=== PATIENT | female | born 1980 | race Two or more races ===

== ENCOUNTER 2018-01-01 17:05 | Emergency (ER) | payer OTHER ==
[~2018-01-01] VITALS: Ht 154.9 cm; Wt 65.8 kg
[2018-01-01 17:11] VITALS: BP 120/73
[2018-01-01] MEDS ORDERED: AMOX/CLAVULANATE 875 MG TABLET ONE (18:20)
[2018-01-01] MEDS ORDERED: TDAP [DIPH/PERTUSSIS/TET] 0.5 ML VIAL IM ONE ×2 (18:20→18:30)
[2018-01-01] MEDS ORDERED: AMOX/CLAVULANATE 875 MG TABLET PO ONE (18:30)
--- NOTE | 2018-01-01 19:08 | NUR ---
REPORT GIVEN TO ZACHARY FOR ANNA MARIE
--- NOTE | 2018-01-01 19:12 | NUR ---
CALLED DR ANTHONY BURRELL, LEFT A VOICEMAIL.
--- NOTE | 2018-01-01 19:13 | NUR ---
Jarrod tolentino in [facility] [place] - 01/01/18 at 1914 by ANDREA REPORT RECEIVED FROM ESTER GUAMAN FOR ANNA MARIE.
--- NOTE | 2018-01-01 19:15 | NUR ---
REPORT RECEIVED FROM ESTER GUAMAN FOR ANNA MARIE.
--- NOTE | 2018-01-01 19:41 | NUR ---
CALLED [facility] SPOKE WITH [facility], HE STATED THEY ARE ONLY OPEN FOR PEDS AND OB FOR HIGHER LEVEL OF CARE AT THIS TIME.
--- NOTE | 2018-01-01 22:17 | NUR ---
patient left prior to splin application.
== END 2018-01-01 22:19 | disposition home or self-care (01) ==
LOC: ER 17:10
DX: S61.431A Puncture wound without foreign body of right hand, initial encounter (principal); W45.8XXA Other foreign body or object entering through skin, initial encounter; Y93.89 Activity, other specified; Y92.89 Other specified places as the place of occurrence of the external cause; Y99.8 Other external cause status
CPT/HCPCS: 12001; 73130; 90471; 90715; 99284; A4606; A6403; Z7610

== ENCOUNTER 2019-01-24 01:25 | Emergency (ER) | payer OTHER ==
[~2019-01-24] VITALS: Ht 154.9 cm; Wt 67.6 kg
--- NOTE | 2019-01-24 02:00 | NUR ---
PT BIBSELF C/O L ANKLE PAIN X5 DAYS. PT STATES SHE WAS CLEANING AND HAD MULTIPLE BOXES FALL ON HER ANKLE. PT STATES SHE WAS ABLE TO AMBULATE WITH LIMP IN GAIT, BUT PAIN HAS GOTTEN PROGRESSIVELY WORSE. PT AAOX4. RESPIRATIONS EVEN AND UNLABORED. SKIN INTACT. NO ACUTE DISTRESS NOTED
[2019-01-24] MEDS ORDERED: IBUPROFEN 600 MG TABLET PO ONE ×2 (02:20→02:30)
--- NOTE | 2019-01-24 02:29 | NUR ---
RADIOLOGY AT BEDSIDE FOR XRAY
[2019-01-24 03:04] VITALS: BP 128/76
--- NOTE | 2019-01-24 03:04 | NUR ---
Patient discharged to home in stable condition. Written and verbal after care instructions given. Patient verbalizes understanding of instruction. Pt ambulatory with a steady gait
== END 2019-01-24 03:05 | disposition home or self-care (01) ==
LOC: ER 01:27
DX: S90.02XA Contusion of left ankle, initial encounter (principal); W20.8XXA Other cause of strike by thrown, projected or falling object, initial encounter; Y93.89 Activity, other specified; Y92.89 Other specified places as the place of occurrence of the external cause; Y99.8 Other external cause status
CPT/HCPCS: 73610-TC

== ENCOUNTER 2022-06-06 02:10 | Emergency (ER) | payer OTHER ==
[~2022-06-06] VITALS: Ht 154.9 cm; Wt 64.9 kg
--- NOTE | 2022-06-06 03:45 | NUR ---
TO ER BED 10. BIBFIANCE. C/O LOWER ABD PAIN ON KEFLEX TX STARTED YESTERDAY. -N/-V/-D. PT IS ALERT AND ORIENTED. RR EVEN AND NONLABORED. CONNECTED TO MONITOR. AWAITING MD RODGERS
--- NOTE | 2022-06-06 03:56 | NUR ---
URINE COLLECTED AND SENT TO LAB
[2022-06-06] MEDS ORDERED: ACETAMINOPHEN 325 MG TABLET ONE (03:58)
[2022-06-06] MEDS ORDERED: ACETAMINOPHEN 325 MG TABLET PO ONE (04:00)
--- NOTE | 2022-06-06 04:39 | NUR ---
ULTRASOUND AT BEDSIDE
[2022-06-06 05:15] LABS: BILIRUBIN,URINE NEGATIVE (NEGATIVE); COLOR,URINE YELLOW (YELLOW); LEUKOCYTE ESTERASE ,URINE NEGATIVE (NEGATIVE); NITRITE, URINE NEGATIVE (NEGATIVE); PROTEIN,URINE NEGATIVE (NEGATIVE); UGLUCOSE NEGATIVE (NEGATIVE); UROBILINOGEN,URINE 0.2 EU/dL (0.2)
[2022-06-06] MEDS ORDERED: NAPR-1164 PO (05:24)
[2022-06-06] MEDS ORDERED: ONDA4TAB5 PO (05:24)
--- NOTE | 2022-06-06 05:29 | NUR ---
Patient discharged to home in stable condition. Written and verbal after care instructions given. Patient verbalizes understanding of instruction.
[2022-06-06 05:30] VITALS: BP 116/74
== END 2022-06-06 05:30 | disposition home or self-care (01) ==
LOC: ER 02:15
DX: R10.9 Unspecified abdominal pain (principal); Z79.899 Other long term (current) drug therapy
CPT/HCPCS: 76770-TC; 84703-TC